=== PATIENT | female | born 2000 | race Caucasian/White ===

== ENCOUNTER 2024-01-28 15:51 | Emergency (ER) | payer MEDICAID ==
[~2024-01-28] VITALS: Ht 167.6 cm; Wt 43.0 kg
[2024-01-28 16:01] VITALS: BP 109/63; PULSE 67; RESP 16; TEMP 98.1; O2SAT 99
[2024-01-28] MEDS ORDERED: ONDANSETRON HCL 4MG/2ML INJ IV ONE (16:15)
[2024-01-28] MEDS ORDERED: SODIUM CHLORIDE 0.9% 1,000 ML IV ONE (16:15)
[2024-01-28 17:00] LABS: BASOPHILS % 0.5 % (0.0-2.0); EOSINOPHILS % 1.5 % (0.0-5.0); HEMATOCRIT. 42.8 % (36.0-48.0); HEMOGLOBIN. 14.3 g/dL (12.0-16.0); LYMPHOCYTES % 18.1 % (20.0-50.0); MEAN CORPUSCULAR HEMOGLOBIN 31.7 pg (28.0-32.0); MEAN CORPUSCULAR HGB CONC 33.5 g/dL (31.0-37.0); MEAN CORPUSCULAR VOLUME 94.6 fL (81.0-99.0); MEAN PLATELET VOLUME 8.9 fl (7.4-10.4); MONOCYTES % 6.4 % (2.0-8.0); NEUTROPHILS % 73.5 % (40.0-76.0); PLATELET 289 x1000/uL (130-400); RED BLOOD CELL COUNT 4.52 mill/uL (4.2-5.4); RED CELL DISTRIBUTION WIDTH 12.6 % (11.6-14.6); WHITE BLOOD COUNT 11.8 x1000/uL (4.5-11.0)
[2024-01-28 17:08] LABS: CHLORIDE 106 mEq/L (98-107); POTASSIUM 4.3 mEq/L (3.5-5.1); SODIUM 135 mEq/L (136-145)
[2024-01-28 17:09] LABS: CARBON DIOXIDE 24 mEq/L (21-32)
[2024-01-28 17:10] LABS: CALCIUM 9.4 mg/dL (8.7-10.4)
[2024-01-28 17:14] LABS: CREATININE 0.5 mg/dL (0.6-1.0); GLUCOSE 83 mg/dL (70-105)
[2024-01-28 17:15] LABS: UREA NITROGEN BLOOD 9 mg/dL (9-23)
[2024-01-28 17:16] LABS: ALANINE AMINOTRANSFERASE 8 IU/L (10-49); ALBUMIN 4.3 g/dL (3.2-4.8); ASPARTATE AMINOTRANSFERASE 16 IU/L (<34)
[2024-01-28 17:17] LABS: BILIRUBIN DIRECT 0.2 mg/dL (<=3.0); BILIRUBIN TOTAL 0.5 mg/dL (0.1-1.0); PROTEIN TOTAL 6.8 g/dL (6.0-8.3)
[2024-01-28 17:28] LABS: B-HCG QUANTITATIVE 92390 mIU/mL (<3)
[2024-01-28] MEDS ORDERED: ONDA4TAB11 PO (19:51)
[2024-01-28] MEDS: LEVETIRACETAM 500MG TABLET PO ONE (20:03)
== END 2024-01-28 20:09 | disposition home or self-care (01) ==
LOC: ER 15:51
DX: O26.91 Pregnancy related conditions, unspecified, first trimester (principal); Z3A.09 9 weeks gestation of pregnancy; R56.9 Unspecified convulsions; O36.4XX0 Maternal care for intrauterine death, not applicable or unspecified
CPT/HCPCS: 99284; 76801; 80076; 80048; 84702; 85025; 86850; 86900; 86901; 36415; 76817; J7030